=== PATIENT | male | born 1945 | race Caucasian/White ===

== ENCOUNTER 2017-06-20 11:15 | Day surgery (SDC) | payer MEDICARE, BC ==
[~2017-06-20 11:15] MED LIST: Lactated Ringers 1,000 ML IV SCH
[2017-06-20] MEDS ORDERED: Propofol 200 MG/20 ML SDV ONE (12:06)
[2017-06-20] MEDS ORDERED: Midazolam 1 MG/ML 2 ML SDV ONE (12:06)
--- NOTE | 2017-06-20 18:49 | OR ---
PREOPERATIVE DIAGNOSIS: Screening colonoscopy. POSTOPERATIVE DIAGNOSES: Colonic polyps x5 and moderate sigmoid diverticulosis. PROCEDURE PROPOSED: Total flexible colonoscopy. PROCEDURE DONE: Total flexible colonoscopy with polypectomy x5. INDICATION: This is a 72-year-old gentleman, who comes in for screening colonoscopy. His last examination was about 10 years ago. He denies any symptomatology. He has a negative family history for colon cancer. TECHNIQUE: The patient was in the left lateral decubitus position in the endoscopy suite. He had been given some propofol per the CHRONOGRAPH OPERATOR. The flexible video colonoscope was then passed transanally and under visualization advanced to the cecum. Examination revealed a normal cecal and ascending colon area. The transverse colon had 130 cm, there was a polyp removed with a cold biopsy forceps. He had 3 polyps found at about the 70 cm range more in splenic flexure area. These were also removed by cold biopsy forceps and then the fifth polyp was found at 50 cm from the anal verge, again removed with cold biopsy forceps. He did have moderate sigmoid diverticulosis and the rectum was normal. The scope was then withdrawn. He tolerated the procedure well. FINAL IMPRESSION: 1. Colonic polyps x5, removed. 2. Moderate sigmoid diverticulosis. PLAN: He will be sent a letter with pathology report. I do feel he should have a 5 year followup exam and that likely would be his last one then. SCM: 06/20/2017 12:59:23 MODL: 06/20/2017 17:51:38 /[id number]
--- NOTE | 2017-07-08 10:17 | LETTER ---
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 There were no worrisome changes within the polyps, but because of the multitude of polyps that were found, I feel that you should have one more exam in your lifetime in approximately 5 years from now. If you have any further questions regarding this, feel free to call. Respectfully,
== END 2017-06-20 14:05 | disposition home or self-care (01) ==
LOC: VM.SDS 11:15
PROVIDERS: ATTEND Surgery
DX: Z12.11 Encounter for screening for malignant neoplasm of colon (principal); D12.6 Benign neoplasm of colon, unspecified; K63.5 Polyp of colon; K57.30 Diverticulosis of large intestine without perforation or abscess without bleeding; I25.10 Atherosclerotic heart disease of native coronary artery without angina pectoris; E78.00 Pure hypercholesterolemia, unspecified; E11.9 Type 2 diabetes mellitus without complications; I10 Essential (primary) hypertension; N40.0 Benign prostatic hyperplasia without lower urinary tract symptoms; Z87.891 Personal history of nicotine dependence; Z79.82 Long term (current) use of aspirin; Z79.899 Other long term (current) drug therapy; Z79.84 Long term (current) use of oral hypoglycemic drugs
CPT/HCPCS: 00810; 45380; 82962; 88305; J2250; J2704; J7120